=== PATIENT | female | born 1945 | race Caucasian/White ===

== ENCOUNTER 2023-06-06 21:32 | Inpatient (IN) | payer MEDICARE, OTHER ==
[~2023-06-06] VITALS: Ht 154.9 cm; Wt 66.7 kg
[2023-06-06] MEDS: ASPirin 81 mg TAB ONE (08:29)
[2023-06-06 22:19] LABS: Basophils # (auto) 0.1 10 ^3/uL (0-0.2); Basophils % (auto) 0.8 % (0.0-2.0); Eosinophils # (auto) 0.1 10 ^3/uL (0-0.8); Eosinophils % (auto) 1.3 % (0.0-7.0); Hematocrit 29.6 % (36.0-46.0); Hemoglobin 9.7 g/dL (12.2-16.2); Lymphocytes # (auto) 2.1 10 ^3/uL (0.4-5.4); Lymphocytes % (auto) 24.7 % (10.0-50.0); Mean Corpuscular Hgb Conc. 32.8 g/dL (32.0-36.0); Mean Corpuscular Volume 91.3 fL (80.0-100.0); Monocytes # (auto) 0.6 10 ^3/uL (0-1.3); Monocytes % (auto) 7.2 % (0.0-12.0); Neutrophils # (auto) 5.6 10 ^3/uL (1.6-8.6); Red Blood Cells 3.25 10^6/uL (4.0-5.20); Red Cell Distribution Width 15.2 % (11.8-14.3); White Blood Cell 8.4 10^3/uL (4.4-10.8)
[2023-06-06 22:28] LABS: Alkaline Phosphatase 91 U/L (46-116); Anion Gap 5 (5-15); Aspartate Aminotransferase 14 U/L (13-40); BUN/Creatinine Ratio 6.9 (10.0-20.0); Blood Urea Nitrogen 15 mg/dL (9-23); Calcium 8.5 mg/dL (8.7-10.4); Carbon Dioxide 22 mmol/L (20-30); Chloride 115 mmol/L (98-107); Glucose 213 mg/dL (74-106); Potassium 3.1 mmol/L (3.5-5.1); Sodium 142 mmol/L (136-145)
[2023-06-06 22:29] LABS: Albumin 2.6 g/dL (3.2-4.8); Bilirubin, Total 0.2 mg/dL (0.2-1.0); Total Protein 4.8 g/dL (5.7-8.2)
[2023-06-06 22:32] LABS: Alanine Aminotransferase < 9 U/L (7-40)
[2023-06-06 22:35] LABS: INR 0.97 (0.9-1.15); Partial Thromboplastin Time 25.9 SEC (24.5-34.5); Prothrombin Time 10.2 sec (9.3-11.8)
[2023-06-06 23:16] LABS: Urine Bacteria None Seen /hpf (None Seen)
[2023-06-06] MEDS: ASPirin 325 MG TAB PO ONE (23:25)
[2023-06-06 23:27] LABS: Urine Blood TRACE /uL (Negative); Urine Clarity Clear (Clear); Urine Color Light-Yellow (Yellow); Urine Protein, UAD 3+ (Negative); Urine Specific Gravity 1.012 (1.001-1.035); Urine Urobilinogen Normal (Negative); Urine WBC 1 /hpf (0 - 5)
[2023-06-07] MEDS ORDERED: ACETAMINOPHEN 325 MG TAB PO PRN
[2023-06-07] MEDS ORDERED: ONDANSETRON HCL 4 MG/2 ML VIAL IV PRN
[2023-06-07] MEDS ORDERED: MORPHINE SULFATE INJ 2 MG/ml SYRG IV PRN
[2023-06-07] MEDS ORDERED: NITROGLYCERIN 0.4 MG SL TAB SL PRN
[2023-06-07] MEDS ORDERED: DEXTROSE (50%) 50ML SYRG IV PRN
[2023-06-07] MEDS: ACCU-CHEK COMFORT CURVE STRIP VI SCH (00:10)
[2023-06-07] MEDS: POTASSIUM CHL 20 Meq TABLET PO ONE ×2 (00:15→08:30)
[2023-06-07] MEDS: InsuLIN REG 1unit/0.01ml Soln (100units/ml) SC SCH (00:16)
[2023-06-07] MEDS: hydrALAZINE HCL 20 MG/ML VL IV PRN ×2 (00:17→13:10)
[2023-06-07] MEDS: hydrALAZINE HCL 20 MG/ML VL ONE ×3 (07:04→13:05)
[2023-06-07 07:30] VITALS: RESP 18; O2SAT 95
[2023-06-07] MEDS: InsuLIN REG 1unit/0.01ml Soln (100units/ml) ONE ×2 (08:30→13:05)
[2023-06-07 09:18] LABS: Basophils # (auto) 0.1 10 ^3/uL (0-0.2); Eosinophils # (auto) 0.1 10 ^3/uL (0-0.8); Eosinophils % (auto) 1.7 % (0.0-7.0); Hematocrit 28.6 % (36.0-46.0); Hemoglobin 9.6 g/dL (12.2-16.2); Lymphocytes # (auto) 1.8 10 ^3/uL (0.4-5.4); Lymphocytes % (auto) 25.3 % (10.0-50.0); Mean Corpuscular Hemoglobin 30.2 pg (28.0-32.0); Mean Corpuscular Hgb Conc. 33.6 g/dL (32.0-36.0); Mean Corpuscular Volume 89.9 fL (80.0-100.0); Monocytes # (auto) 0.4 10 ^3/uL (0-1.3); Monocytes % (auto) 5.4 % (0.0-12.0); Neutrophils # (auto) 4.7 10 ^3/uL (1.6-8.6); Neutrophils % (auto) 66.6 % (37.0-80.0); Red Blood Cells 3.19 10^6/uL (4.0-5.20); Red Cell Distribution Width 15.1 % (11.8-14.3)
[2023-06-07 09:27] LABS: Anion Gap 7 (5-15); Carbon Dioxide 20 mmol/L (20-30); Chloride 118 mmol/L (98-107); Sodium 145 mmol/L (136-145)
[2023-06-07 09:28] LABS: Calcium 8.4 mg/dL (8.5-10.1)
[2023-06-07 09:33] LABS: BUN/Creatinine Ratio 7.8 (10.0-20.0); Blood Urea Nitrogen 16 mg/dL (9-23); Glucose 143 mg/dL (74-106); Triglycerides 154 mg/dL (< 150)
[2023-06-07 09:34] LABS: LDL Cholesterol 93 mg/dL (< 100)
[2023-06-07 09:35] LABS: Cholesterol 174 mg/dL (< 200); HDL Cholesterol 54 mg/dL (40-59)
[2023-06-07] MEDS: amLODIPine BESYLATE 5 MG TAB ONE (10:38)
[2023-06-07] MEDS: FUROSEMIDE 40 MG TAB ONE (10:38)
[2023-06-07] MEDS: FUROSEMIDE 40 MG TAB PO SCH (10:53)
[2023-06-07] MEDS: amLODIPine BESYLATE 5 MG TAB PO SCH (10:53)
[2023-06-07] MEDS: CARVEDILOL 3.125 MG TAB PO SCH (10:54)
[2023-06-07] MEDS: POTASSIUM EFFERVESENT TAB 25 MEQ PO ONE (10:57)
[2023-06-07 13:00] VITALS: BP 169/80; PULSE 80; RESP 20; TEMP 97.9; O2SAT 96
[2023-06-07 13:29] LABS: Amphetamine Screen, Urine Neg (NEGATIVE); Barbiturate Scree,Urine Neg (NEGATIVE); Benzodiazephine Screen, Urine Neg (NEGATIVE); Cannabinoid Screen, Urine Neg (NEGATIVE); Cocaine Screen, Urine Neg (NEGATIVE); Opiate Scree,Urine Neg (NEGATIVE); Phencyclidine Screen, Urine Neg (NEGATIVE)
[2023-06-07] MEDS ORDERED: HYDR-5052 PO (13:47)
[2023-06-07] MEDS ORDERED: PAR20T PO (13:47)
[2023-06-07] MEDS ORDERED: CARV6.2551 PO (13:47)
[2023-06-07] MEDS ORDERED: ATOR40TA52 PO (13:47)
[2023-06-07] MEDS ORDERED: LISI-275 PO (13:47)
[2023-06-07] MEDS ORDERED: PIOG15TA25 PO (14:00)
[2023-06-07 16:30] VITALS: BP 162/65; PULSE 76; RESP 17; TEMP 98.2; O2SAT 97
[2023-06-07] MEDS: hydrALAZINE HCL 25 MG TAB PO PRN (18:19)
[2023-06-07 19:15] LABS: Rapid Influenza A Negative (Negative); Rapid Influenza B Negative (Negative)
[2023-06-07 19:16] LABS: COVID19 ANTIGEN SOFIA FIA NEGATIVE (NEGATIVE)
[2023-06-07 20:00] VITALS: PULSE 79; PULSE 80; RESP 16; O2SAT 98
[2023-06-07 21:00] VITALS: BP 161/75; PULSE 76; RESP 18; TEMP 98.7; O2SAT 98
[2023-06-07] MEDS: ATORVASTATIN 20 MG TAB PO SCH (21:44)
[2023-06-08 00:59] VITALS: BP 117/45; PULSE 82; RESP 17; TEMP 97.1; O2SAT 94
[2023-06-08 05:00] VITALS: BP 155/52; PULSE 79; RESP 19; TEMP 97; O2SAT 93
[2023-06-08 06:47] LABS: Calcium 8.4 mg/dL (8.5-10.1); Chloride 116 mmol/L (98-107); Potassium 3.1 mmol/L (3.5-5.1); Sodium 145 mmol/L (136-145)
[2023-06-08 06:49] LABS: Anion Gap 6 (5-15); Carbon Dioxide 23 mmol/L (20-30)
[2023-06-08 06:54] LABS: Blood Urea Nitrogen 18 mg/dL (9-23); Glucose 135 mg/dL (74-106)
[2023-06-08 07:11] LABS: Basophils # (auto) 0.1 10 ^3/uL (0-0.2); Eosinophils # (auto) 0.1 10 ^3/uL (0-0.8); Eosinophils % (auto) 1.9 % (0.0-7.0); Hemoglobin 9.1 g/dL (12.2-16.2); Lymphocytes # (auto) 1.6 10 ^3/uL (0.4-5.4); Lymphocytes % (auto) 24.9 % (10.0-50.0); Mean Corpuscular Hemoglobin 30.6 pg (28.0-32.0); Mean Corpuscular Hgb Conc. 33.6 g/dL (32.0-36.0); Monocytes # (auto) 0.4 10 ^3/uL (0-1.3); Monocytes % (auto) 6.2 % (0.0-12.0); Neutrophils # (auto) 4.2 10 ^3/uL (1.6-8.6); Nucleated Red Blood Cells % 0.1 %; Red Blood Cells 2.96 10^6/uL (4.0-5.20); Red Cell Distribution Width 15.1 % (11.8-14.3); White Blood Cell 6.4 10^3/uL (4.4-10.8)
[2023-06-08 08:00] VITALS: PULSE 83
[2023-06-08 08:15] VITALS: PULSE 85; RESP 19; O2SAT 97
[2023-06-08] MEDS: hydrALAZINE HCL 25 MG TAB ONE (09:33)
[2023-06-08] MEDS: SPIRONOLACTONE 25 MG TAB PO SCH (11:17)
[2023-06-08] MEDS: amLODIPine BESYLATE 5 MG TAB PO SCH (11:18)
[2023-06-08] MEDS: POTASSIUM EFFERVESENT TAB 25 MEQ PO ONE (11:24)
[2023-06-08] MEDS: BUMETANIDE 2.5mg/10ml (0.25 mg/ml) INJ IV SCH (13:04)
[2023-06-08] MEDS: hydrALAZINE HCL 25 MG TAB PO SCH (13:04)
[2023-06-08 20:00] VITALS: PULSE 87; PULSE 89; RESP 18; O2SAT 97
[2023-06-08 20:58] VITALS: BP 136/51; PULSE 75; RESP 14; TEMP 98.3; O2SAT 95
[2023-06-09] VITALS (9 sets, daily range): BP systolic 115–163; BP diastolic 47–66; PULSE 8–86; RESP 16–18; TEMP 96.9–99.3; O2SAT 94–98
[2023-06-09 05:29] LABS: Creatinine, Urine 30.51 mg/dL (30.0-125.0)
[2023-06-09 05:32] LABS: Protein, Urine 396.7 mg/dL (0.0-11.9)
[2023-06-09] MEDS ORDERED: PIOG15TA PO (08:36)
[2023-06-09] MEDS ORDERED: GLIM2TAB33 PO (08:43)
[2023-06-09 08:54] LABS: Basophils # (auto) 0.1 10 ^3/uL (0-0.2); Basophils % (auto) 1.3 % (0.0-2.0); Eosinophils # (auto) 0.1 10 ^3/uL (0-0.8); Eosinophils % (auto) 1.6 % (0.0-7.0); Hematocrit 28.6 % (36.0-46.0); Hemoglobin 9.4 g/dL (12.2-16.2); Lymphocytes # (auto) 2.5 10 ^3/uL (0.4-5.4); Lymphocytes % (auto) 30.9 % (10.0-50.0); Mean Corpuscular Hemoglobin 29.5 pg (28.0-32.0); Mean Corpuscular Hgb Conc. 32.9 g/dL (32.0-36.0); Mean Corpuscular Volume 89.8 fL (80.0-100.0); Monocytes # (auto) 0.6 10 ^3/uL (0-1.3); Monocytes % (auto) 6.9 % (0.0-12.0); Neutrophils # (auto) 4.9 10 ^3/uL (1.6-8.6); Neutrophils % (auto) 59.3 % (37.0-80.0); Nucleated Red Blood Cells % 0.1 %; Red Blood Cells 3.18 10^6/uL (4.0-5.20); Red Cell Distribution Width 14.8 % (11.8-14.3); White Blood Cell 8.3 10^3/uL (4.4-10.8)
[2023-06-09 09:01] LABS: Chloride 113 mmol/L (98-107); Potassium 3.4 mmol/L (3.5-5.1); Sodium 143 mmol/L (136-145)
[2023-06-09 09:02] LABS: Anion Gap 8 (5-15); Calcium 9.1 mg/dL (8.7-10.4); Carbon Dioxide 22 mmol/L (20-30)
[2023-06-09 09:07] LABS: BUN/Creatinine Ratio 9.1 (10.0-20.0); Blood Urea Nitrogen 20 mg/dL (9-23); Glucose 115 mg/dL (74-106)
[2023-06-09 12:30] LABS: Erythrocyte Sedimentation Rate 54 mm/hr (0-20)
[2023-06-09] MEDS: POTASSIUM CHL 20 Meq TABLET PO ONE (12:51)
[2023-06-09] MEDS: guaiFENesin-DM 100/10mg/5ml SYR PO PRN (23:01)
[2023-06-10 01:00] VITALS: BP 118/83; PULSE 84; RESP 17; TEMP 98.9; O2SAT 96
[2023-06-10 05:00] VITALS: BP 153/50; PULSE 78; RESP 18; TEMP 98.6; O2SAT 94
[2023-06-10 07:01] LABS: Basophils # (auto) 0 10 ^3/uL (0-0.2); Basophils % (auto) 0.7 % (0.0-2.0); Eosinophils # (auto) 0.1 10 ^3/uL (0-0.8); Eosinophils % (auto) 1.8 % (0.0-7.0); Hematocrit 25.7 % (36.0-46.0); Hemoglobin 8.5 g/dL (12.2-16.2); Lymphocytes # (auto) 1.9 10 ^3/uL (0.4-5.4); Lymphocytes % (auto) 25.1 % (10.0-50.0); Mean Corpuscular Hemoglobin 29.6 pg (28.0-32.0); Mean Corpuscular Hgb Conc. 32.9 g/dL (32.0-36.0); Mean Corpuscular Volume 89.9 fL (80.0-100.0); Monocytes # (auto) 0.6 10 ^3/uL (0-1.3); Monocytes % (auto) 7.6 % (0.0-12.0); Neutrophils # (auto) 4.9 10 ^3/uL (1.6-8.6); Neutrophils % (auto) 64.8 % (37.0-80.0); Nucleated Red Blood Cells % 0.1 %; Red Blood Cells 2.86 10^6/uL (4.0-5.20); Red Cell Distribution Width 14.9 % (11.8-14.3); White Blood Cell 7.5 10^3/uL (4.4-10.8)
[2023-06-10 07:04] LABS: Chloride 114 mmol/L (98-107); Potassium 3.6 mmol/L (3.5-5.1); Sodium 143 mmol/L (136-145)
[2023-06-10 07:05] LABS: Anion Gap 7 (5-15); Carbon Dioxide 22 mmol/L (20-30)
[2023-06-10 07:06] LABS: Calcium 8.4 mg/dL (8.5-10.1)
[2023-06-10 07:11] LABS: BUN/Creatinine Ratio 11.5 (10.0-20.0); Blood Urea Nitrogen 25 mg/dL (9-23); Glucose 140 mg/dL (74-106)
[2023-06-10 08:00] VITALS: PULSE 84; RESP 18; O2SAT 98
[2023-06-10 08:07] LABS: Anti-Centromere B Antibody <0.2 AI (0.0-0.9); Anti-Jo-1 Antibody <0.2 AI (0.0-0.9); Anti-dsDNA Antibody <1 IU/mL (0-9); Antichromatin Antibody <0.2 AI (0.0-0.9); Antiscleroderma-70 Antibody <0.2 AI (0.0-0.9); Complement C3 122 mg/dL (82-167); RNP Antibody <0.2 AI (0.0-0.9); Sjogren's Anti-SS-A Antibody <0.2 AI (0.0-0.9); Sjogren's Anti-SS-B Antibody <0.2 AI (0.0-0.9); Smith Antibody <0.2 AI (0.0-0.9)
[2023-06-10 09:00] VITALS: BP 131/42; PULSE 80; RESP 14; TEMP 98.6; O2SAT 95
[2023-06-10 09:58] VITALS: BP 158/57; PULSE 83; RESP 16; O2SAT 96
[2023-06-10 11:13] VITALS: BP 158/57; PULSE 83; TEMP 37
[2023-06-10] MEDS ORDERED: SPIR25TA PO (11:52)
[2023-06-10] MEDS ORDERED: BUME2TAB5 PO (11:52)
[2023-06-10] MEDS: hydrALAZINE HCL 25 MG TAB PO SCH (12:00)
[2023-06-10] MEDS ORDERED: CARVEDILOL 12.5 MG TAB PO SCH (22:00)
[2023-06-12 06:06] LABS: Antimyeloperoxidase (MPO) Ab <0.2 units (0.0-0.9); Antiproteinase 3 (PR-3) Ab <0.2 units (0.0-0.9)
[2023-06-14 13:06] LABS: Cytoplasmic (C-ANCA) <1:20 titer (Neg:<1:20); Perinuclear (P-ANCA) <1:20 titer (Neg:<1:20)
[2023-06-15 16:06] LABS: Renin Activity 0.592 ng/mL/hr (.)
== END 2023-06-10 16:00 | disposition home or self-care (01) | DRG 305 ==
LOC: ER 21:32 → TELE 06-07 → TELE-CENTR 06-07 10:24
PROVIDERS: ADMIT Nurse Practitioner; ATTEND Internal Medicine Pulmonary Disease
DX: I16.0 Hypertensive urgency (principal); N17.9 Acute kidney failure, unspecified; I50.32 Chronic diastolic (congestive) heart failure; I24.9 Acute ischemic heart disease, unspecified; E87.6 Hypokalemia; I13.0 Hypertensive heart and chronic kidney disease with heart failure and stage 1 through stage 4 chronic kidney disease, or unspecified chronic kidney disease; N18.9 Chronic kidney disease, unspecified; E11.22 Type 2 diabetes mellitus with diabetic chronic kidney disease; Z87.891 Personal history of nicotine dependence; Z80.8 Family history of malignant neoplasm of other organs or systems; Z91.119 Patient's noncompliance with dietary regimen due to unspecified reason; Z79.4 Long term (current) use of insulin
CPT/HCPCS: 36415; 71045; 76775; 80048; 80053; 80061; 80307; 81001; 82088; 82533; 82570; 82962; 83036; 83516; 83520; 83735; 83835; 83880; 84156; 84244; 84443; 84484; 85025; 85610; 85652; 85730; 86160; 86225; 86235; 86256; 87081; 87426; 87804; 93005; 93306; 93975; G0378; J1815